=== PATIENT | female | born 1945 | race Caucasian/White ===

== ENCOUNTER 2024-07-19 14:06 | Outpatient (CLI) | payer MEDICARE ==
[~2024-07-19] VITALS: Ht 166.4 cm; Wt 62.1 kg
[2024-07-19 14:41] LABS: TOTAL HEMOGLOBIN 12.4 G/dl (12.0-16.0)
[2024-07-19] MEDS ORDERED: albuterol 2.5 MG/3 ML nebule NEB ONE (14:55)
[2024-07-19 15:25] VITALS: PULSE 71; RESP 16; O2SAT 96
[2024-07-19] MEDS: albuterol 2.5 MG/3 ML nebule NEB ONE (15:35)
[2024-07-19 15:55] VITALS: PULSE 72; RESP 16
== END 2024-07-19 23:59 | disposition home or self-care (01) ==
LOC: RT 14:06
PROVIDERS: ATTEND Internal Medicine
DX: R06.02 Shortness of breath (principal)
CPT/HCPCS: 85018; 94060; 94727; 94729; 94760